=== PATIENT | female | born 1990 | race Caucasian/White ===

== ENCOUNTER 2018-07-31 13:35 | Emergency (ER) | payer SELFPAY ==
[~2018-07-31] VITALS: Ht 160 cm; Wt 68.0 kg
[2018-07-31 14:21] LABS: *BILIRUBIN,URIN NEGATIVE (NEGATIVE); *BLOOD, URINE Trace-intact (NEGATIVE); *COLOR,URINE YELLOW (YELLOW); *KETONES,URINE NEGATIVE (NEGATIVE); *PROTEIN,URINE NEGATIVE (NEGATIVE); *UROBILINOGEN,URINE 0.2 E.U./dl (NORMAL); LEUKOCYTE ESTERASE ,URINE NEGATIVE (NEGATIVE); NITRITE, URINE NEGATIVE (NEGATIVE); UGLUCOSE NEGATIVE (NEGATIVE)
[2018-07-31 14:24] LABS: *URINE HCG, QUAL NEGATIVE (NEGATIVE)
[2018-07-31 14:31] LABS: *CLARITY,URINE SLIGHTLY HAZY (CLEAR)
[2018-07-31 14:32] LABS: BACTERIA,URINE MODERATE /HPF (NONE SEEN); SQUAMOUS EPITHELIAL CELL,UR MODERATE /HPF (NONE SEEN); WBC,URINE 0-3 /HPF (0-3)
--- NOTE | 2018-07-31 14:41 | NUR ---
Patient discharged to home in stable conditon. Written and verbal after care instructions given to patient. Patient verbalizes understanding of instructions. Patient left ER with brisk steady gait.
== END 2018-07-31 14:42 | disposition home or self-care (01) ==
LOC: ER 13:35
DX: N39.0 Urinary tract infection, site not specified (principal); Z90.49 Acquired absence of other specified parts of digestive tract
CPT/HCPCS: 84703; A4663

== ENCOUNTER 2020-07-06 13:34 | Emergency (ER) | payer OTHER ==
[~2020-07-06] VITALS: Ht 160 cm; Wt 68.0 kg
[2020-07-06 14:12] LABS: *BILIRUBIN,URIN NEGATIVE (NEGATIVE); *CLARITY,URINE CLEAR (CLEAR); *COLOR,URINE YELLOW (YELLOW); *KETONES,URINE TRACE (NEGATIVE); *UROBILINOGEN,URINE 0.2 E.U./dl (NORMAL); LEUKOCYTE ESTERASE ,URINE NEGATIVE (NEGATIVE); NITRITE, URINE NEGATIVE (NEGATIVE); UGLUCOSE NEGATIVE (NEGATIVE)
[2020-07-06 14:15] LABS: *BLOOD, URINE TRACE (NEGATIVE)
--- NOTE | 2020-07-06 14:16 | NUR ---
[email or web address], pending results & disposition, NAD
[2020-07-06 14:42] LABS: BASOPHILS # (AUTO) 0.1 K/uL (0.0-8.0); BASOPHILS % (AUTO) 1.1 % (0.0-2.0); EOSINOPHILS # (AUTO) 0.2 K/uL (0.0-0.7); EOSINOPHILS % (AUTO) 2.5 % (0.0-7.0); HEMATOCRIT 35.7 % (31.2-41.9); HEMOGLOBIN 12.2 g/dL (10.9-14.3); LYMPHOCYTES # (AUTO) 1.7 K/uL (20.0-40.0); LYMPHOCYTES % (AUTO) 19.9 % (20.5-51.5); MEAN CORPUSCULAR HEMOGLOBIN 29.6 uug (24.7-32.8); MEAN CORPUSCULAR HGB CONC 34 g/dL (32.3-35.6); MEAN CORPUSCULAR VOLUME 86.8 fL (75.5-95.3); MONOCYTES # (AUTO) 0.6 K/uL (2.0-10.0); MONOCYTES % (AUTO) 7.3 % (0.0-11.0); NEUTROPHILS # (AUTO) 5.8 K/uL (1.8-8.9); NEUTROPHILS % (AUTO) 69.2 % (38.5-71.5); PLATELET COUNT (AUTO) 263 K/uL (179-408); RED BLOOD CELL COUNT(AUTO) 4.11 MIL/uL (3.63-4.92); WHITE BLOOD COUNT (AUTO) 8.4 K/uL (3.8-11.8)
[2020-07-06 14:46] LABS: CREATININE 0.7 mg/dL (0.6-1.3); POTASSIUM 3.9 mmol/L (3.5-5.1)
[2020-07-06 14:52] LABS: BILIRUBIN,DIRECT 0.1 mg/dL (0.0-0.2); BILIRUBIN,TOTAL 0.3 mg/dL (0.2-1.0); TOTAL PROTEIN, SERUM 7.4 g/dL (6.4-8.2)
[2020-07-06] MEDS ORDERED: CEFTRIAXONE 500 MG VIAL IM ONE (16:15)
[2020-07-06] MEDS ORDERED: AZITHROMYCIN 250 MG TABLET PO ONE (16:15)
[2020-07-06] MEDS ORDERED: LIDOCAINE HCL 1% 20 ML VIAL ONE (16:22)
[2020-07-06] MEDS ORDERED: AZITHROMYCIN 250 MG TABLET ONE (16:22)
[2020-07-06] MEDS ORDERED: CEFTRIAXONE 500 MG VIAL ONE (16:22)
--- NOTE | 2020-07-06 16:34 | NUR ---
No adverse rxn seen to meds given. Patient discharged to home in stable condition & steady gait. Written and verbal after care instructions given to patient. Patient verbalizes understanding of instructions. Stressed follow up with OB doctor or return to ER for worsening s/s. Copies of all the tests' results were given to patient. "Excuse from work note" provided as well per patient's request.
[2020-07-06 16:47] LABS: BACTERIA,URINE RARE /HPF (NONE SEEN); SQUAMOUS EPITHELIAL CELL,UR FEW /HPF (NONE SEEN); WBC,URINE 0-3 /HPF (0-3)
== END 2020-07-06 16:39 | disposition home or self-care (01) ==
LOC: ER 13:34
DX: O20.9 Hemorrhage in early pregnancy, unspecified (principal); Z3A.01 Less than 8 weeks gestation of pregnancy; O23.591 Infection of other part of genital tract in pregnancy, first trimester
CPT/HCPCS: 36415; 76856; 80048; 80076; 81001; 83690; 84702; 85025; 85730; 86850; 86900; 86901; 87086; 87491; 96372; 99284; J0696; J3490; A4663; Q0144

== ENCOUNTER 2021-07-26 11:29 | Emergency (ER) | payer OTHER ==
[~2021-07-26] VITALS: Ht 160 cm; Wt 70.3 kg
[2021-07-26 11:51] LABS: *BILIRUBIN,URIN NEGATIVE (NEGATIVE); *BLOOD, URINE 1+ (NEGATIVE); *CLARITY,URINE CLEAR (CLEAR); *COLOR,URINE YELLOW (YELLOW); *KETONES,URINE NEGATIVE (NEGATIVE); *UROBILINOGEN,URINE 0.2 E.U./dl (NORMAL); LEUKOCYTE ESTERASE ,URINE NEGATIVE (NEGATIVE); NITRITE, URINE NEGATIVE (NEGATIVE); UGLUCOSE NEGATIVE (NEGATIVE)
[2021-07-26 11:52] LABS: *URINE HCG, QUAL NEG (NEGATIVE)
--- NOTE | 2021-07-26 12:33 | NUR ---
Patient discharged to home in stable condition. Written and verbal after care instructions given. Patient verbalizes understanding of instructions. Stressed follow up or return to ER for worsening s/s. PT WALKS I NSTEADY GAIT.
[2021-07-26 13:31] LABS: BACTERIA,URINE NONE SEEN /HPF (NONE SEEN); RBC,URINE 0-3 /HPF (0-3); SQUAMOUS EPITHELIAL CELL,UR FEW /HPF (NONE SEEN); WBC,URINE 0-3 /HPF (0-3)
== END 2021-07-26 12:34 | disposition home or self-care (01) ==
LOC: ER 11:29
DX: S39.011A Strain of muscle, fascia and tendon of abdomen, initial encounter (principal); X50.0XXA Overexertion from strenuous movement or load, initial encounter; Y92.89 Other specified places as the place of occurrence of the external cause
CPT/HCPCS: 84703; A4663

== ENCOUNTER 2021-11-18 22:23 | Emergency (ER) | payer OTHER ==
[~2021-11-18] VITALS: Ht 157.5 cm; Wt 70.3 kg
--- NOTE | 2021-11-18 22:32 | NUR ---
Pt brought back to room ED5 by webbing supervisor cassie. Placed on bedside monitor and initial VS obtained. VSS, PE WNL, pt is . no s/sx of distress present.
--- NOTE | 2021-11-18 22:55 | NUR ---
Pt is complaining of 8/10 pain in abdominal region. States that she is approx 7wks.
--- NOTE | 2021-11-18 22:57 | NUR ---
Just went in to pt's room to collect UA, she was in the bathroom at the time. As I walked in to room, I heard her flush toilet. Pt had just voided. Pt told to drink a lot of water and try to give us a specimen to be sent to lab. Pt agreed, and started drinking from large bottle of water she had with her.
[2021-11-18 23:05] LABS: HEMATOCRIT 32.9 % (31.2-41.9); MEAN CORPUSCULAR HEMOGLOBIN 29.4 uug (24.7-32.8); MEAN CORPUSCULAR VOLUME 85.2 fL (75.5-95.3); PLATELET COUNT (AUTO) 294 K/uL (179-408)
[2021-11-18 23:15] LABS: ALANINE AMINOTRANSFERASE 17 U/L (14-59); ALKALINE PHOSPHATASE 52 U/L (50-136); ASPARTATE AMINOTRANSFERASE 11 U/L (15-37); BILIRUBIN,DIRECT < 0.1 mg/dL (0.0-0.2); BILIRUBIN,TOTAL 0.2 mg/dL (0.2-1.0); CARBON DIOXIDE 26 mmol/L (21-32); CHLORIDE 101 mmol/L (98-107); CREATININE 0.5 mg/dL (0.6-1.3); GLUCOSE 105 mg/dL (74-106); POTASSIUM 3.5 mmol/L (3.5-5.1); TOTAL PROTEIN, SERUM 7.2 g/dL (6.4-8.2); UREA NITROGEN, BLOOD 10 mg/dL (7-18)
--- NOTE | 2021-11-18 23:28 | NUR ---
US tech at bedside to perform exam.
--- NOTE | 2021-11-18 23:51 | NUR ---
US tech consulting with EDSD and showing the her the US findings.
--- NOTE | 2021-11-19 00:30 | NUR ---
Pt given DC instructions by rn hemodialysis charge, and pt confirmed understanding of aftercare before released home. VSS, PE wnl, US results neg, pt told to follow up with chemistry laboratory technician. Pt ambulated out of dept with steady gait. Denies any sob, dizziness, n/v or discomfort. No s/sxof distress present.
[2021-11-19 02:13] VITALS: BP 137/84
== END 2021-11-19 00:30 | disposition home or self-care (01) ==
LOC: ER 22:26
DX: O20.8 Other hemorrhage in early pregnancy (principal); Z3A.01 Less than 8 weeks gestation of pregnancy
CPT/HCPCS: 36415; 76856; 85025; 86850; 86900; 86901; A4663

== ENCOUNTER 2022-11-17 11:40 | Emergency (ER) | payer OTHER ==
[~2022-11-17] VITALS: Ht 157.5 cm; Wt 72.6 kg
--- NOTE | 2022-11-17 11:54 | NUR ---
[email or web address], medical screening exam in progress
[2022-11-17] MEDS ORDERED: TRAM50TA2 PO (11:59)
--- NOTE | 2022-11-17 12:12 | NUR ---
Patient discharged to home in stable condition with brisk steady gait. Written and verbal after care instructions given in [place] by MD. Patient verbalized understanding and compliance of instructions. Stressed follow up with primary doctor and ortho doctor or return to ER for worsening s/s.
== END 2022-11-17 12:13 | disposition home or self-care (01) ==
LOC: ER 11:40
DX: M54.2 Cervicalgia (principal); M25.512 Pain in left shoulder; Z87.440 Personal history of urinary (tract) infections
CPT/HCPCS: A4663